=== PATIENT | male | born 1960 | race Caucasian/White ===

== ENCOUNTER → 2019-01-21 | Outpatient (CLI) | payer OTHER ==
--- NOTE | 2019-01-21 10:10 | Diagnostic Imaging Report ---
INDICATION: Left knee pain 3 views of the left knee show no fracture, dislocation or other acute abnormalities. IMPRESSION: Negative left knee Dictated by: Dictated on workstation # [id number]
== END ==
LOC: RAD FS 09:52
PROVIDERS: ATTEND Nurse Practitioner
DX: M25.562 Pain in left knee (principal)
CPT/HCPCS: 73562